=== PATIENT | male | born 1955 | race Caucasian/White ===

== ENCOUNTER 2017-05-09 12:46 | Emergency (ER) | payer OTHER, SELFPAY ==
[2017-05-09 12:52] VITALS: BP 165/91; PULSE 57; RESP 18; TEMP 36.5; O2SAT 98; BMI 34.2
--- NOTE | 2017-05-09 13:00 | HMH.EDGENADL ---
ED Disposition Clinical Impression: Ureteral calculus Disposition: Home, Self-Care Condition on Discharge: Good Instructions: DI for Kidney Stones Additional Instructions: Follow-up at the [facility] urology clinic. Call today or tomorrow to make appointment to be seen within 1 week. Additional instructions for KIDNEY STONE (URETERAL CALCULUS): See your physician as soon as possible for further evaluation. Drink plenty of fluids. Strain your urine and save any stones you catch. Return immediately if you develop a fever or have uncontrollable vomiting or uncontrollable pain. What is known about DIET and KIDNEY STONES: Most kidney stones contain calcium oxalate. The logical assumption would be that you should avoid calcium and oxalate in your diet. Contrary to what you would think, this is not necessarily the case. What is actually recommended for kidney stone prevention is a diet that contains MODERATELY HIGH AMOUNTS OF CALCIUM and is LOW IN SODIUM with PLENTY OF FLUIDS. Avoiding oxalate containing foods is recommended by some experts, but is controversial. Following the DASH (Dietary Approaches to Stop Hypertention) has been shown to significantly reduce the incidence of kidney stones. The DASH diet encourages you to reduce the sodium in your diet and eat a variety of foods rich in nutrients that help lower blood pressure, such as potassium, calcium and magnesium. Recommendations: Fluids: It is widely agreed upon that you need to drink plenty of fluids. A minimum would be 8-10 glasses (8 oz each) of fluid per day. Some experts recommend as much as 14-15 glasses a day. Sodium: The way to lower calcium in your urine is to lower your sodium intake. Try not to get more than 1500 mg a day. Calcium: Dietary calcium prevents absorption of oxalate. Make sure you get about 1000 to 1200 mg a day. You can get enough calcium from dairy products without taking supplements. Do not overdo it. Calcium should be ingested with meals, not in between meals. You need to get your calcium at mealtime to decrease the absorption of oxalate from other foods. Oxalate: Although some experts recommend avoiding oxalate in your diet, there have been no studies that prove this works. Eating more calcium will reduce oxalate absorption, and is probably all that is needed to reduce oxalate in your urine. Oxalate containing foods are generally good for you in all other respects - leafy greens, nuts, etc... So avoiding them unnecessarily might not be the best thing for your health. If you want to do something to avoid oxalate, avoid spinach and rhubarb - those are extremely high in oxalate (or at least eat a high calcium meal with these). ALSO: If you retrieve your stone by straining your urine, take it to your physician for stone analysis, which can help tailor your dietary recommendations. For further reading, check out the [facility] web page about the kidney stone diet: [email or web address] Additional instructions for CONTROLLED SUBSTANCES: You have been prescribed a medication that is a controlled substance. Controlled substances include pain medications known as opiates and sedative nerve medications known as benzodiazepines. Some common opiates include: Codeine (such as Tylenol #3) Hydrocodone (Vicodin, Lortab, Lorcet, Munson) Oxycodone (Percocet, Percodan, Oxycodone, Oxy IR) Some common benzodiazepines include: Diazepam (Valium) Lorazepam (Ativan) Alprazolam (Xanax) Clonazepam (Klonopin) Oxazepam (Serax) All of these controlled substances are highly addictive and frequently abused. Misuse can and frequently does lead to addiction as well as overdose and . Medication should be stored in a locked cabinet or other secure storage unit. Do not store the medication in a motor vehicle. Short term supplies, 3 days or less, are prescribed because of the highly a
--- NOTE | 2017-05-09 13:13 | CT_ITS ---
CT lumbar spine wo con INDICATION: Right flank pain, right-sided back pain ITS.REASON: flank pain ORDERING PHYSICIAN: Quinten Lei MD PATIENT AGE: 61 years COMPARISON: None TECHNIQUE: Axial images are obtained without contrast. Sagittal and coronal reformatted images are reviewed as well. FINDINGS: There is normal alignment. Hypoplastic ribs are present at T12. There are 4 regular lumbar vertebra. Degenerative disc disease T11-T12 and T10-T11. Schmorl's node is present along the superior endplate of T12 on the right. T12-L1 is unremarkable. L1-L2: Minimal bulging disc L2-L3: Degenerative disc disease. A limbus vertebra involves the anterior superior endplate of L3. L3-L4: Degenerative disc disease with mild concentric bulging disc and mild bilateral foraminal narrowing. L4 S1: 3 mm anterolisthesis of L4 with concentric bulging disc. There is moderate facet arthritic/hypertrophic change with mild bilateral foraminal narrowing. There is fusion of the superior aspect of the SI joint. Incidental note is made of a 6 mm stone in the mid aspect of the right ureter at the L4 level. IMPRESSION: 1. Lumbar spondylosis with multilevel degenerative disc disease, bulging disc, and facet hypertrophic change. Please see above for detailed description at each level. 2. 6 mm right mid ureteral stone
--- NOTE | 2017-05-09 13:13 | XR_ITS ---
XR chest 2V HISTORY: Shortness of air ITS.REASON: soa ORDERING PHYSICIAN: Quinten Lei MD PATIENT AGE: 61 years COMPARISON: None available FINDINGS: The cardiomediastinal silhouette and pulmonary vascularity are within normal limits. The lungs are clear without infiltrates, suspicious nodules, or pleural effusions. No acute bony abnormalities. IMPRESSION: Negative chest, no acute finding
--- NOTE | 2017-05-09 13:13 | CT_ITS ---
CT abdomen pelvis wo con CLINICAL INDICATION: Right-sided flank pain, right groin pain ITS.REASON: flank pain ORDERING PHYSICIAN: Quinten Lei MD PATIENT AGE: 61 years COMPARISON: None TECHNIQUE: Axial images obtained with sagittal and coronal reformats. PROCEDURE: Oral Contrast: None IV Contrast: None . FINDINGS: Lung bases are clear. Liver, gallbladder, adrenal glands, and pancreas are unremarkable. There is mild splenomegaly at 15 cm. There is a 6 mm right mid ureteral stone causing mild right-sided hydronephrosis and proximal hydroureter. The stone is at the L5 level. The left renal collecting system has an unremarkable appearance. No urinary bladder calculi. No intestinal obstruction or free air. The appendix has an unremarkable appearance. No evidence of diverticulitis. No pelvic mass or abnormal fluid collection. The prostate is slightly prominent at 5.3 cm. There is a small umbilical hernia which contains fat. There is also a small supraumbilical hernia containing fat with very slight increased density of the fat within the supraumbilical hernia. There is a limbus vertebra at L4 degenerative disc disease at T12-L1 and L3-L4 and L4-L5. IMPRESSION: 1. 6 mm right mid ureteral stone with mild right hydroureteronephrosis. 2. Small umbilical and supraumbilical hernias containing fat. 3. Mild splenomegaly
--- NOTE | 2017-05-09 13:34 | PC.NURSE ---
pt to CT
[2017-05-09 13:52] LABS: Basophils % 0.1 % (0.1-2.0); Eosinophils % 0.4 % (0.1-12.0); Hematocrit 39.8 % (42.0-52.0); Hemoglobin 13.3 g/dL (14.1-18.0); Lymphocytes # 0.6 K/mm3 (0.7-4.5); Lymphocytes % 10.3 K/mm3 (10-50); Mean Corpuscular HGB Conc 33.4 g/dL (31.8-35.4); Mean Corpuscular Hemoglobin 29.7 pg (27.0-31.2); Mean Corpuscular Volume 88.8 fl (80-94); Monocytes # 0.2 K/mm3 (0.1-1.0); Monocytes % 3.5 % (1.7-9.3); Neutrophils # 5.4 K/mm3 (1.8-7.8); Neutrophils % 85.8 % (37.0-80.0); Platelet Count 149 K/mm3 (142-424); Red Blood Count 4.48 M/mm3 (4.60-6.20); Red Cell Distribution Width 13.3 % (11.5-17.5); White Blood Count 6.3 K/mm3 (4.8-10.8)
[2017-05-09 13:53] LABS: MANUAL DIFFERENTIAL MANUAL DIFFERENTIAL (MANUAL DIFF)
[2017-05-09 14:03] LABS: Alanine Aminotransferase 33 U/L (12-78); Albumin/Globulin Ratio 1.1 (1.1-1.8); Alkaline Phosphatase 95 U/L (46-116); Anion Gap 14.2 mEq/L (5-15); Aspartate Amino Transferase 18 U/L (15-37); Bilirubin,Total 0.5 mg/dL (0.2-1.0); Blood Urea Nitrogen 18 mg/dL (7-18); CKMB Relative Index 1.3 U/L (0-4.0); Calcium 8.6 mg/dL (8.5-10.1); Carbon Dioxide 27 mmol/L (21.0-32.0); Chloride 103 mmol/L (98-107); Creatine Kinase 80 U/L (39-308); Creatinine Clearance Estimated 108 mL/min (0-300); Creatinine,Serum 1.05 mg/dL (0.70-1.30); Estimated Glomerular Filt Rate 72 ml/min (>60); GFR (African American) 87 ML/MIN (>60); Globulin 3.7 gm/dl (1.3-3.2); Glucose 114 mg/dL (74-106); Lipase 122 u/L (73-393); Potassium 4.2 mmoL/L (3.5-5.1); Sodium 140 mmol/L (136-145); Total Protein,Serum 7.7 gm/dL (6.4-8.2); Troponin I < 0.02 ng/ml (0.00-0.06)
[2017-05-09 14:22] LABS: Lymphocytes % 16 % (10-50); Monocytes % 7 % (2-9); Neutrophils % 77 % (42-76); Platelet Estimate Normal; RBC Morphology Normal; Total Cells Counted 100
[2017-05-09 14:44] LABS: Microscopic, Urine URINE MICROSCOPIC (MICROSCOPIC)
[2017-05-09 14:47] VITALS: BP 162/92; PULSE 64; RESP 18; O2SAT 98
[2017-05-09 14:49] LABS: Appearance,Urine CLEAR (Clear); Bilirubin,Urine Negative (Negative); Blood, Urine 3+ (Negative); Color,Urine YELLOW (Yellow); Glucose,Urine (UA) Negative (Negative); Ketones,Urine Negative (Negative); Leukocyte Esterase,Urine Negative (Negative); Nitrate,Urine Negative (Negative); PH,Urine 6.5 (5.0-8.5); Protein,Urine TRACE (Negative)
[2017-05-09 15:16] LABS: Bacteria,Urine Trace /lpf; Mucus,Urine 3+ /lpf; RBC,Urine 20-50 #/hpf (0-3); WBC,Urine Occasional #/hpf (0-3)
[2017-05-09 15:17] VITALS: BP 154/92; PULSE 66; RESP 20; TEMP 36.7; O2SAT 97
== END 2017-05-09 15:17 | disposition home or self-care (01) ==
PROVIDERS: Emergency Provider Emergency Medicine
DX: N13.2 Hydronephrosis with renal and ureteral calculous obstruction (principal); M54.9 Dorsalgia, unspecified; R06.02 Shortness of breath
CPT/HCPCS: 71046; 72131; 74176; 80053; 81001; 82550; 82553; 83690; 84484; 85007; 85025; 93005; 96374; 96375; 99283; J2405

== ENCOUNTER 2020-09-28 10:09 | Emergency (ER) | payer SELFPAY ==
[2020-09-28 10:10] VITALS: BP 155/79; PULSE 81; RESP 16; TEMP 36.7; O2SAT 96; BMI 36.3; BMI 36.5
--- NOTE | 2020-09-28 11:04 | HMH.EDUTC ---
[facility] [place] Disposition Clinical Impression: Contusion of face Qualifiers: Encounter type: initial encounter Qualified Code(s): S00.83XA - Contusion of other part of head, initial encounter Disposition: Home, Self-Care Condition on Discharge: Good Instructions: Contusion, DI for Contusion, DI for Abrasion Additional Instructions: Keep abrasions on face clean and dry Ice to area under right eye may help with pain and swelling Over the counter Motrin and/or Tylenol may help with pain Return if needed Follow up with Family Doctor if no improvement or any worsening of symptoms Straight to ER if any life threatening symptoms Watch wounds for signs of infection such as redness, drainage and warmth if seen follow up with PCp Referrals: Provider,Referral, MD [Primary Care Provider] - As needed Forms: Work/School Release Time of Disposition: 11:49 Medical Decision Making - Sage Inquiry Pt receiving controlled substance: No Sage was queried for this patient: No Vital Signs: 09/28/20 10:10 09/28/20 11:48 Temperature 98.1 F 98.1 F Temperature Source Oral Pulse Rate 81 Pulse Rate [Left Radial] 81 Respiratory Rate 16 16 Blood Pressure 155/79 H Blood Pressure [Left Arm] 155/79 H Blood Pressure Mean [Left Arm] 104 Blood Pressure Source [Left Arm] Automatic Cuff Blood Pressure Position [Left Arm] Sitting 02 Sat by Pulse Oximetry 96 Oxygen Delivery Method Room Air Orders (Tests/Meds): ED MEDICATIONS Discontinued Medications Generic Name Dose Route Start Last Admin Trade Name Freq PRN Reason Stop Dose Admin Tetanus/Reduced Diphtheria/Acell Pertussis 0.5 ml 09/28/20 10:39 09/28/20 10:50 Tet/Diphth/Pert-Adult 0.5ml Syringe IM 09/28/20 10:40 0.5 ml .ONCE ONE Administration - Radiology Data #1 Image(s): Nasal Bones Image Reviewed: Yes I have reviewed radiologist's interpretation No evidence of displaced fractures. No air-fluid levels in the sinuses. #2 Image(s): Other (orbit bilateral) Image Reviewed: Yes I have reviewed radiologist's interpretation No acute findings [facility] [place] HPI - General Stated complaint: wc @ 0830 lac to nose Time Seen by Provider: 09/28/20 11:04 Mode of Arrival: Ambulatory Source of Information: Patient Limitations: No Limitations Description of Symptoms (Recalled from Triage Doc. by RN): Pt presents with abrasion to bridge of nose and under rt eye. Pt states that a cow kicked a trailer gate into him and caused his glasses to cut his face. Pt has bruising with minor swelling under rt HEENT Symptoms (Recalled from RN notes): Yes Resp Symptoms (Recalled from RN notes): No Skin Symptoms (Recalled from RN notes): Yes MS Symptoms (Recalled from RN notes): No Functional Status (Recalled from RN notes): WNL - History of Present Illness Provider Complaint: Patient states that he was getting a cow out of the gate when the cow kicked the gate and he had glasses on and the gate hit him in the face and broke his glasses and caused abrasion to his face on his nose and around his right eye States that his job wanted him to get checked Denies LOC Denies vision changes or nose bleeds - Related Data Home Medications Medication Instructions Recorded Confirmed Atorvastatin Calcium [Atorvastatin 10 mg PO DAILY 05/09/17 05/09/17 20mg Tab] Previous Rx's Medication Instructions Recorded Ibuprofen [Ibuprofen 800mg Tab] 800 mg PO Q8HP PRN #15 tab 05/09/17 Ondansetron [Zofran 4mg ODT] 4 mg PO TIDP PRN #10 tab.rapdis 05/09/17 Oxycodone HCl/Acetaminophen 1 tab PO Q6HP PRN #10 tab 05/09/17 [Percocet 5/325mg tablet] Tamsulosin HCl [Flomax 0.4mg 0.4 mg PO HS #10 cap.er.24h 05/09/17 capsule] Allergies Allergy/AdvReac Type Severity Reaction Status Date / Time Penicillins Allergy Verified 05/09/17 12:57 - Worker's Comp Is this a Worker's Comp case?: No H History - Hepatitis A Screen Drug use history?: No High risk sexual behavi
--- NOTE | 2020-09-28 11:14 | XR_ITS ---
PROCEDURE: XR ORBIT BILATERAL MIN 4V CLINICAL INDICATION: hit in face with gate COMPARISON: No exams were available for comparison FINDINGS: The orbital margins are intact. The visualized paranasal sinuses and mastoid air cells are clear. The visualized mandible is within normal limits without evidence of acute fractures. IMPRESSION: No acute findings. Dictated by: Heather Rodriguez 09/28/2020 11:40 Heather Rodriguez in OV 09/28/2020 11:40
--- NOTE | 2020-09-28 11:14 | XR_ITS ---
PROCEDURE: XR NASAL BONES MIN 3V CLINICAL INDICATION: hit in face with gate COMPARISON: No exams were available for comparison FINDINGS: No evidence of displaced fractures are noted. The orbital floor is intact. The rest of the orbital margins, visualized zygomatic arches and mandible are within normal limits. Minor degenerative changes of the visualized cervical spine is noted. The orbital margins, visualized frontal and maxillary sinuses are within normal limits. The frontal IMPRESSION: No evidence of displaced fractures. No air-fluid levels in the sinuses. Dictated by: Heather Rodriguez 09/28/2020 11:38 Heather Rodriguez in OV 09/28/2020 11:38
[2020-09-28 11:48] VITALS: BP 155/79; PULSE 81; RESP 16; TEMP 36.7; O2SAT 96
== END 2020-09-28 11:50 | disposition home or self-care (01) ==
LOC: ER 10:28 → UTC 10:28
PROVIDERS: Emergency Provider Nurse Practitioner
DX: S00.83XA Contusion of other part of head, initial encounter (principal); W22.8XXA Striking against or struck by other objects, initial encounter; Y92.69 Other specified industrial and construction area as the place of occurrence of the external cause; Y99.0 Civilian activity done for income or pay; Z23 Encounter for immunization
CPT/HCPCS: 70160; 70200; 90471; 90715; 99202; G0463

== ENCOUNTER → 2021-03-11 12:48 | Outpatient (CLI) | payer OTHER, SELFPAY | PROVIDERS: Visit Provider Nurse Practitioner Family | DX: Z20.822 Contact with and (suspected) exposure to COVID-19 (principal) | CPT/HCPCS: C9803; U0003; U0005 ==

== ENCOUNTER 2021-06-04 22:30 | Emergency (ER) | payer OTHER, SELFPAY ==
[2021-06-04 22:31] VITALS: BP 154/73; PULSE 90; RESP 16; TEMP 36.6; O2SAT 97; BMI 38.0
--- NOTE | 2021-06-04 22:52 | XR_ITS ---
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 Views: 3 or more views. COMPARISON: No relevant prior studies available. FINDINGS: Bones/joints: There is a nondisplaced fracture involving the 2nd distal phalanx. Subtle intra-articular extension into the distal interphalangeal joint. Soft tissues: Normal. IMPRESSION: There is a nondisplaced fracture involving the 2nd distal phalanx.
[2021-06-04 23:02] VITALS: BP 146/83; PULSE 76; PULSE 84; O2SAT 94; O2SAT 95
--- NOTE | 2021-06-04 23:19 | PC.NURSE ---
ER at bedside
[2021-06-04 23:30] VITALS: BP 152/85; PULSE 81; PULSE 84; O2SAT 91; O2SAT 95
--- NOTE | 2021-06-04 23:55 | HMH.EDWNDL ---
ED Disposition Clinical Impression: Finger fracture, right Qualifiers: Encounter type: initial encounter Finger: index finger Fracture type: closed Phalanx: distal Fracture alignment: nondisplaced Qualified Code(s): S62.660A - Nondisplaced fracture of distal phalanx of right index finger, initial encounter for closed fracture Finger laceration Qualifiers: Encounter type: initial encounter Finger: index finger Damage to nail status: with damage Foreign body presence: without foreign body Laterality: right Qualified Code(s): S61.310A - Laceration without foreign body of right index finger with damage to nail, initial encounter Subungual hematoma of finger Qualifiers: Encounter type: initial encounter Qualified Code(s): S60.10XA - Contusion of unspecified finger with damage to nail, initial encounter Disposition: Home, Self-Care Condition on Discharge: Good Instructions: DI for Laceration Repair Additional Instructions: keep clean and dry and see ortho for follow up Prescriptions: cephALEXin [cephALEXin 500mg capsule*] 500 mg PO TID #30 cap Transmission Status: Pending to [id number] Referrals: Provider,Referral, [Primary Care Provider] - - Critical Care Critical Care Time: No Attestation: On 06/04/21, the high probability of a clinically significant, sudden or life threatening deterioration of the following system(s) required my full and direct attention, intervention and personal management. The time I documented below is in addition to time spent performing reported procedures but includes the following listed in this critical care notation. Medical Decision Making - Medical Records Medical records reviewed: Yes: I reviewed the patient's medical records. - Sage Inquiry Pt receiving controlled substance: No Vital Signs: 06/04/21 22:31 06/04/21 23:02 06/04/21 23:30 Temperature 97.8 F Temperature Source Oral Pulse Rate 76 84 Pulse Rate [Left Radial] 90 Respiratory Rate 16 Blood Pressure 146/83 H 152/85 H Blood Pressure [Right Arm] 154/73 H Blood Pressure Mean 104 104 Blood Pressure Mean [Right Arm] 100 Blood Pressure Source [Right Arm] Automatic Cuff Blood Pressure Position [Right Arm] Sitting 02 Sat by Pulse Oximetry 97 94 L 91 L Oxygen Delivery Method Room Air Room Air Room Air - Lab Data Lab results reviewed: Yes: I reviewed the patient's lab results. Orders (Tests/Meds): ED MEDICATIONS Discontinued Medications Generic Name Dose Route Start Last Admin Trade Name Patsy PRN Reason Stop Dose Admin Acetaminophen 650 mg 06/04/21 22:52 06/04/21 22:59 Acetaminophen 325mg Tab PO 06/04/21 22:53 650 mg ONCE ONE Administration Cephalexin HCl 500 mg 06/05/21 00:19 Cephalexin 500mg Capsule PO 06/05/21 00:20 ONCE ONE Ibuprofen 600 mg 06/04/21 22:52 06/04/21 22:59 Ibuprofen 600 Mg Tablet PO 06/04/21 22:53 600 mg ONCE ONE Administration - Radiology Data #1 Image(s): Hand Image Reviewed: Yes I have reviewed radiologist's interpretation Preliminary Findings: Abnormal (fx noted ) Medical Decision Narrative: has nail injury with hematoma and lac with fx and after repair will refer to ortho - workman comp form completed Wound/Laceration HPI - General Chief Complaint: Wound/Laceration Stated Complaint: WC 06/04@1000 lac to r Index finger Time Seen by Provider: 06/04/21 23:00 Mode of Arrival: Ambulatory Source of Information: Patient, Spouse, Medical Record Limitations: No Limitations Description of Symptoms (Recalled from ER Triage Doc. 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 He went home and his was concerned that there was still bleeding from wound. Pt has lac to said finger. - History of Present Illness HPI narrative: workmans comp case- index finger smashed with lac and injury at work between saravia - Onset (ago): hour(s) Extremity Location: Right: hand Place: wor
--- NOTE | 2021-06-05 00:36 | PC.NURSE ---
Updated pt that we were waiting on scan results. No complaints at this time.
[2021-06-05 01:12] VITALS: BP 146/88; PULSE 64; RESP 16; TEMP 36.9; O2SAT 97
== END 2021-06-05 01:30 | disposition home or self-care (01) ==
PROVIDERS: Emergency Provider Emergency Medicine
DX: S62.660A Nondisplaced fracture of distal phalanx of right index finger, initial encounter for closed fracture (principal); S61.310A Laceration without foreign body of right index finger with damage to nail, initial encounter; W23.1XXA Caught, crushed, jammed, or pinched between stationary objects, initial encounter; Y92.79 Other farm location as the place of occurrence of the external cause; Y99.0 Civilian activity done for income or pay
CPT/HCPCS: 12001; 11740; 73130; 99283

== ENCOUNTER → 2021-07-15 08:04 | Outpatient (CLI) | payer OTHER, SELFPAY ==
--- NOTE | 2021-07-15 08:12 | XR_ITS ---
FINAL REPORT CLINICAL HISTORY: finger fx COMPARISON: June 04, 2021 FINDINGS: 3 views of the right hand were obtained. Again seen is a longitudinal fracture spanning the length of the 2nd distal phalanx. The fracture line extends into the DIP joint. This is mildly displaced. There is [id number] narrowing of the DIP and PIP joints. There is degenerative cyst formation in the distal 1st, 2nd, and 3rd metacarpals. There is mild soft tissue swelling over the dorsum of the hand. IMPRESSION: Redemonstration of 2nd distal phalanx fracture. Reviewed, Interpreted and Dictated by Silas Greenfield MD Transcribed by Lorenzo Knowles Authenticated by Silas Greenfield MD on 07/15/2021 09:18:05 AM [facility]
== END ==
PROVIDERS: Visit Provider Orthopaedic Surgery
DX: S62.660D Nondisplaced fracture of distal phalanx of right index finger, subsequent encounter for fracture with routine healing (principal)
CPT/HCPCS: 73130

== ENCOUNTER → 2021-09-02 08:32 | Outpatient (CLI) | payer OTHER, SELFPAY ==
--- NOTE | 2021-09-02 08:36 | XR_ITS ---
FINAL REPORT CLINICAL HISTORY: hand injury 2nd digit COMPARISON: July 15, 2021 FINDINGS: RIGHT HAND Three views were obtained. Again noted is a fracture of the 2nd distal phalanx. The bony alignment is stable. There is partial bony fusion proximally. The visualized joint spaces are normally aligned. The soft tissues are unremarkable. IMPRESSION: Fracture of the 2nd distal phalanx with partial bony fusion. Reviewed, Interpreted and Dictated by Petar Gentile III, MD Transcribed by Amanda Dunaway Authenticated and . [facility]
== END ==
PROVIDERS: Visit Provider Orthopaedic Surgery
DX: S62.660D Nondisplaced fracture of distal phalanx of right index finger, subsequent encounter for fracture with routine healing (principal)
CPT/HCPCS: 73130

== ENCOUNTER → 2021-11-18 08:15 | Outpatient (CLI) | payer OTHER, SELFPAY ==
--- NOTE | 2021-11-18 08:22 | XR_ITS ---
FINAL REPORT CLINICAL HISTORY: right index finger fracture f/u COMPARISON: 09/02/2021 FINDINGS: RIGHT HAND Three views demonstrate a fracture of the 2nd distal phalanx with interval partial bony fusion. Mild degenerative changes are noted. No other fracture is identified. The visualized joint spaces are normally aligned. The soft tissues are unremarkable. IMPRESSION: Interval healing of fracture of the 2nd distal phalanx. Reviewed, Interpreted and Dictated by Petar Gentile III, MD Transcribed by Heydi Fuentes Authenticated and [facility]
== END ==
PROVIDERS: Visit Provider Orthopaedic Surgery
DX: S62.660A Nondisplaced fracture of distal phalanx of right index finger, initial encounter for closed fracture (principal)
CPT/HCPCS: 73130

== ENCOUNTER 2023-09-16 17:29 | Observation (INO) | payer MEDICARE, SELFPAY ==
[2023-09-16] VITALS (19 sets, daily range): BP systolic 94–160; BP diastolic 41–94; PULSE 75–125; RESP 16–22; TEMP 36.8–39.2; O2SAT 92–98; BMI 37.5; BMI 41.1; BMI 39.8
--- NOTE | 2023-09-16 17:39 | XR_ITS ---
PROCEDURE INFORMATION: Exam: XR Chest Exam date and time: 09/16/2023 5:39 PM Age: 68 years old Clinical indication: Pain; Chest pressure; Additional info: Cp TECHNIQUE: Imaging protocol: Radiologic exam of the chest. Views: 1 view. COMPARISON: CR CXR2V XR chest 2V 05/09/2017 1:53 PM FINDINGS: Lungs: No consolidation or lung nodules. Pleural spaces: No pleural effusion. No pneumothorax. Heart/Mediastinum: No abnormalities. No cardiomegaly. No pulmonary vascular congestion. Bones/joints: No fractures or bone lesions. IMPRESSION: No acute findings in the chest. No interval change.
--- NOTE | 2023-09-16 17:42 | HMH.EDCP ---
Discharge Plan Disposition Patient Disposition: Admitted Chief Complaint: Shortness of Breath/Dyspnea Prescriptions Prescriptions: No Action No Known Home Medications Referrals Follow up/Referrals: Provider,Referral, [Primary Care Provider] - See instructions Clinical Impressions Clinical Impression: ST elevation (STEMI) myocardial infarction, Fever Discharge ED Provider: Saravanan Cade General Chief Complaint: Shortness of Breath/Dyspnea Stated Complaint: SOA Time Seen by Provider: 09/16/23 17:39 History of Present Illness HPI narrative: Patient is a 68-year-old male with no chronic comorbidities who presents emergency department for evaluation of chest pain. Patient has had slight cough, generally feeling unwell with similar symptoms of family members at home since . He has had chest pressure that is gotten progressively worse over the last few hours causing her to present here for continued evaluation. No abdominal pain. There is associated nonbloody diarrhea. No other acute complaints at this time. Related Data Home Medications Medication Instructions Recorded Confirmed No Known Home Medications 07/15/21 11/18/21 Allergies Allergy/AdvReac Type Severity Reaction Status Date / Time Penicillins Allergy Verified 11/18/21 09:05 [facility] Disclaimer: The information contained in this section may have been updated after the patient was seen, as this information can be updated by other users. Social History Smoking Status: Never smoker alcohol intake: never current occupational status: other Travel in the last 8 weeks: None ROS Obtained: Yes Systems reviewed as appropriate & no additional complaints except as documented Physical Exam General General appearance: alert and in no apparent distress Head Head exam: atraumatic and normocephalic Eye Eye exam: Present PERRL ENT ENT exam: Present mucous membranes moist Neck Neck exam: Present normal inspection Chest Chest inspection: Present normal inspection and symmetric chest wall rise Respiratory Respiratory exam: Present normal lung sounds bilaterally; Absent respiratory distress Cardiovascular Cardiovascular exam: Present normal rhythm and tachycardia Abdominal Exam Abdominal exam: Present soft; Absent tenderness Extremities Exam Extremities exam: Present normal inspection Neurological Exam Neurological exam: Present alert Psychiatric Psychiatric exam: Present normal affect Skin Skin exam: Present warm and dry HEART Score HEART Score HEART Score assessment performed?: Yes History (anamnesis): Highly suspicious ECG: Significant ST-deviation Age: >65 years Risk factors: No known risk factors Troponin: </= normal limit HEART Score: 6 Critical Care Critical Care Time Critical Care Time: Yes Attestation: On 09/16/23, the high probability of a clinically significant, sudden or life threatening deterioration of the following system(s) required my full and direct attention, intervention and personal management. The time I documented below is in addition to time spent performing reported procedures but includes the following listed in this critical care notation. Total Time Total Critical Care Time: 45 Medical Decision Making Sage Inquiry Pt receiving controlled substance: No Vital Signs Vital Signs: 09/16/23 17:37 09/16/23 17:41 09/16/23 18:14 Temperature 102.5 F H Temperature Source Oral Pulse Rate 121 H 114 H Pulse Rate [Right Radial] 125 H Respiratory Rate 22 Blood Pressure 160/78 H 111/64 Blood Pressure [Right Arm] 157/94 H Blood Pressure Mean [Right Arm] 115 Blood Pressure Source [Right Arm] Automatic Cuff Blood Pressure Position [Right Arm] Sitting 02 Sat by Pulse Oximetry 96 94 L 97 Oxygen Delivery Method Room Air Room Air Room Air 09/16/23 18:33 Temperature 102.3 F H Temperature Source Pulse Rate 93 H Pulse Rate [Right Radial] Respiratory Rate Blood Pressure Blood Pressure [Right Arm] Blood Pressure Mean [Right Arm] Blood Pressure Source [Right Arm] Blood Pressure Position [Right Arm] 02 Sat by Pulse Oximetry 98 Oxygen Delivery Method Lab Data Labs: Lab Results 09/16/23 17:46: WBC 4.8, RBC 4.00 L, Hgb 13.2 L, Hct 36.2 L, MCV 90.5, MCH 32.9 H, MCHC 36.4 H, RDW 14.7, Plt Count 104 L, MPV 8.2, Neut % (Auto) 89.7 H, Lymph % (Auto) 5.5 L, [place] % (Auto) 4.1, Eos % (Auto) 0.4, Baso % (Auto) 0.4, Neut # (Auto) 4.3, Lymph # (Auto) 0.3 L, [place] # (Auto) 0.2, Eos # (Auto) 0.0, Baso # (Auto) 0.0, PT 13.7 H, INR 1.25 H, Sodium 133 L, Potassium 4.5, Chloride 102, Carbon Dioxide 20 L, Anion Gap 15.5 H, BUN 26 H, Creatinine 1.60 H, Estimated Creat Clear 69, Estimated GFR 43 L, Est GFR ( Amer) 52 L, Glucose 149 H, Calcium 8.7, Total Bilirubin 3.0 H, AST 74 H, ALT 49, Alkaline Phosphatase 91, Troponin I < 0.01, Total Protein 8.2, Albumin 4.4, Globulin 3.8 H, Albumin/Globulin Ratio 1.2, Triglycerides 146, Cholesterol 190, LDL Cholesterol Direct 105.64, VLDL Cholesterol 29, HDL Cholesterol 35 L, Cholesterol/HDL Ratio 5.4 H, SARS-CoV-2 (PCR) Not detected, Influenza A Untype (PCR) Not detected, Influenza Type B (PCR) Not detected 09/16/23 17:46 09/16/23 17:46 Response Orders (Tests/Meds): ED MEDICATIONS Generic Name Dose Route Start Last Admin Trade Name Freq PRN Reason Stop Dose Admin Sodium Chloride 1,000 mls @ 25 mls/hr 09/16/23 17:45 Sod Chlor 0.9% 1000ml Bag IV 10/16/23 17:44 .Q25H HEIDI Lactated Ringer's 1,000 mls @ 999 mls/hr 09/16/23 18:16 09/16/23 18:41 Lactated Ringer's 1000 Ml Bag IV 09/16/23 19:16 999 mls/hr .Q1H1M ONE Administration Miscellaneous 1 each 09/16/23 19:00 Heparin Drip Consult NOTAPPLIC 10/16/23 18:59 CONSULT PHARMACY HEIDI Nitroglycerin 0.4 mg 09/16/23 17:39 09/16/23 17:57 Nitroglycerin 0.4mg Sl Tablet SL 09/16/23 19:39 0.4 mg Q5MINP PRN Administration Chest Pain Sodium Chloride 10 ml 09/16/23 17:39 Sodium Chloride 0.9% 10ml Flush Syringe IV 10/16/23 17:38 NEEDED PRN Maintain IV Site Discontinued Medications Generic Name Dose Route Start Last Admin Trade Name Freq PRN Reason Stop Dose Admin Acetaminophen 1,000 mg 09/16/23 17:45 09/16/23 17:58 Acetaminophen 500mg Tab PO 09/16/23 17:46 1,000 mg ONCE ONE Administration Aspirin 324 mg 09/16/23 17:45 09/16/23 18:00 Aspirin 81mg Chewable Tablet PO 09/16/23 17:46 324 mg ONCE ONE Administration Iopamidol 100 ml 09/16/23 18:25 09/16/23 18:26 Iopamidol-370 (76%);100ml Bottle IV 09/16/23 18:26 100 ml ONCE ONE Administration Metoprolol Tartrate 10 mg 09/16/23 17:52 09/16/23 18:09 Metoprolol Tartrate 5mg/5ml Vial IV 09/16/23 17:53 10 mg ONCE ONE Administration Miscellaneous 1 each 09/16/23 17:45 09/16/23 17:59 Heparin Drip Consult NOTAPPLIC 09/17/23 05:40 Not Given CONSULT [facility] Morphine Sulfate 2 mg 09/16/23 17:39 Morphine 2mg/Ml Syringe IV 09/16/23 19:39 Q5MINP PRN Severe Pain (7-10) Morphine Sulfate 4 mg 09/16/23 18:03 09/16/23 18:06 Morphine 4mg/Ml Syringe IV 09/16/23 18:04 4 mg ONCE ONE Administration Prasugrel 60 mg 09/16/23 17:40 09/16/23 17:59 Prasugrel 10mg Tab PO 09/16/23 17:41 Not Given ONCE ONE Sodium Chloride 10 ml 09/16/23 18:25 09/16/23 18:26 Sodium Chloride 0.9% 10ml Syr (Rad Only) IV 09/16/23 18:26 10 ml ONCE ONE Administration Sodium Chloride 50 ml 09/16/23 18:25 09/16/23 18:26 0.9 % Sodium Chloride 50 Ml Vial IV 09/16/23 18:26 50 ml ONCE ONE Administration ORDERS Category Date Time Status CT angio chest - dissection Stat Cat Scan 09/16/23 17:52 Taken Consult to Cardiology [CONS] Stat Cons 09/16/23 17:39 Active XR chest portable Stat Exams 09/16/23 17:39 Completed Complete Blood Count Auto Diff Stat Lab 09/16/23 17:46 Results Comprehensive Metabolic Panel Stat Lab 09/16/23 17:46 Completed Lipid Panel Stat Lab 09/16/23 17:46 Completed PTT Heparin (inpatient only) Stat Lab 09/16/23 18:48 Ordered Prothrombin Time INR Stat Lab 09/16/23 17:46 Completed Rapid PCR Covid and Flu A/B Stat Lab 09/16/23 17:46 Completed Troponin I Q3H Lab 09/16/23 20:45 Ordered Troponin I Q3H Lab 09/16/23 23:45 Ordered Troponin I Stat Lab 09/16/23 17:39 Completed ECG Data Tracing #1: ECG Narrative: Independently interpreted by me rate is 125, rhythm is regular, ST elevation in lead V2, ST depression in the inferior lateral leads. STEMI in the anterior leads versus Brugada. QTc 376 Tracing #2: ECG Narrative: Independently interpreted by me rate is 93, rhythm is regular, ST elevation in the anterior leads consistent with myocardial infarction with reciprocal changes. MDM Narrative Medical Decision Narrative: In summary patient is 68-year-old male past medical history described above presents emergency department for evaluation of chest pressure and pain. Patient is hemodynamically stable and tachycardic upon arrival, febrile temperature greater than 102. EKG has anterior STEMI with reciprocal lateral and inferior ST depression versus Brugada. The case was discussed with Dr. Pitts, patient is febrile and tachycardic which may be revealing his Brugada. He recommends chest x-ray, IV metoprolol, and initial workup prior to deciding whether or not to go to the [facility], I think that this is reasonable has not could be Brugada versus ACS. Differential also includes pulmonary embolism, aortic dissection, myocarditis, among others. Workup be conducted with hematologic labs, emergent CTA chest. Initial interventions include morphine, aspirin, nitroglycerin. Initial workup reviewed by me, hematologic labs have TATYANA which will be repleted with 1 L crystalloid, initial troponin undetectably low, COVID-negative. Repeat EKG is concerning for dynamic changes with evolving STEMI. Although CTA was conducted formal read is pending. The case was again discussed with Dr. Pitts who agrees we should proceed to [facility] at this time. Sepsis bolus fluids will be deferred given patient appears euvolemic. Patient will be given heparin bolus and Effient and will proceed to [facility]. CTA read pending at time of admission.
--- NOTE | 2023-09-16 17:46 | PC.NURSE ---
Paging again at this time
--- NOTE | 2023-09-16 17:52 | CT_ITS ---
PROCEDURE INFORMATION: Exam: CTA Chest With Contrast Exam date and time: 09/16/2023 6:24 PM Age: 68 years old Clinical indication: Pain; Shortness of breath; Chest pressure; Additional info: Pop, taryn, SONiyah TECHNIQUE: Imaging protocol: Computed tomographic angiography of the chest with contrast. Exam focused on the arteries. 3D rendering (Not supervised by radiologist): MIP and/or 3D reconstructed images were created by the technologist. Radiation optimization: All CT scans at this facility use at least one of these dose optimization techniques: automated exposure control; mA and/or kV adjustment per patient size (includes targeted exams where dose is matched to clinical indication); or iterative reconstruction. Contrast material: ISO 370; Contrast volume: 100 ml; Contrast route: INTRAVENOUS (IV); COMPARISON: CR XR CHEST PORTABLE 09/16/2023 5:39 PM FINDINGS: Pulmonary arteries: No pulmonary emboli. Aorta: No aortic aneurysm. No aortic dissection. Lungs: A triangular 5 mm fissure based nodule in the right middle lobe (image 48, series 9; image 37, series 1002). No other nodules or airspace consolidation. Pleural spaces: No pneumothorax. No pleural effusion. Heart: No cardiomegaly. No pericardial effusion. Coronary arteries: Small number of coronary artery calcifications. Lymph nodes: No enlarged lymph nodes. Liver: Liver has diffuse low density. Spleen: Spleen measures at least 15.5 cm and AP dimension. Bones/joints: No acute fracture. Soft tissues: No soft tissue masses. IMPRESSION: 1. No pulmonary emboli. No aortic aneurysm or intimal dissection. 2. No acute findings in the chest. 3. Benign, 5 mm, horizontal fissure based nodule in the right middle lobe along the horizontal fissure. No further imaging is necessary. 4. Mild coronary artery disease. 5. Hepatic steatosis. 6. Mild splenomegaly.
[2023-09-16 17:55] LABS: Basophils % 0.4 % (0.1-2.0); Eosinophils % 0.4 % (0.1-12.0); Hematocrit 36.2 % (42.0-52.0); Hemoglobin 13.2 g/dL (14.1-18.0); Lymphocytes # 0.3 K/mm3 (0.7-4.5); Lymphocytes % 5.5 % (10-50); Mean Corpuscular HGB Conc 36.4 g/dL (31.8-35.4); Mean Corpuscular Hemoglobin 32.9 pg (27.0-31.2); Mean Corpuscular Volume 90.5 fl (80-94); Mean Platelet Volume 8.2 fl (7.4-10.4); Monocytes # 0.2 K/mm3 (0.1-1.0); Monocytes % 4.1 % (1.7-9.3); Neutrophils # 4.3 K/mm3 (1.8-7.8); Neutrophils % 89.7 % (37.0-80.0); Platelet Count 104 K/mm3 (142-424); Red Cell Distribution Width 14.7 % (11.5-17.5); White Blood Count 4.8 K/mm3 (4.8-10.8)
[2023-09-16 17:56] LABS: Coronavirus 19, PCR Not Detected (NotDetected); Influenza A, PCR Not Detected (NotDetected); Influenza B, PCR Not Detected (NotDetected)
[2023-09-16] MEDS: NITROGLYCERIN 0.4MG SL TABLET 0.4 MG SL (17:57)
--- NOTE | 2023-09-16 17:57 | PC.NURSE ---
spoke with Gisselle. New orders received. Gisselle did not want STEMI team called in until after pt scan and trop result.
[2023-09-16] MEDS: ACETAMINOPHEN 500MG TAB 1000 MG PO (17:58)
[2023-09-16] MEDS: ASPIRIN 81MG CHEWABLE TABLET 324 MG PO (18:00)
[2023-09-16 18:05] LABS: Chloride 102 mmol/L (98-107); Potassium 4.5 mmoL/L (3.5-5.1); Sodium 133 mmol/L (136-145)
[2023-09-16 18:06] LABS: Blood Urea Nitrogen 26 mg/dl (9-20); Creatinine Clearance Estimated 69 mL/min (50-200); Estimated Glomerular Filt Rate 43 ml/min (>60); GFR (African American) 52 ML/MIN (>60)
[2023-09-16] MEDS: MORPHINE 4MG/ML SYRINGE 4 MG IV (18:06)
[2023-09-16 18:07] LABS: Alanine Aminotransferase 49 U/L (12-78); Albumin Level 4.4 g/dl (3.5-5.0); Albumin/Globulin Ratio 1.2 (1.1-1.8); Alkaline Phosphatase 91 U/L (38-126); Anion Gap 15.5 mEq/L (5-15); Aspartate Amino Transferase 74 U/L (17-59); Calcium 8.7 mg/dl (8.4-10.2); Carbon Dioxide 20 mmol/L (22.0-30.0); Cholesterol 190 mg/dl (140-200); Globulin 3.8 g/dL (1.3-3.2); Glucose 149 mg/dl (74-100); Total Protein,Serum 8.2 g/dl (6.3-8.2); Triglycerides 146 mg/dl (30-150); VLDL Cholesterol 29 mg/dL (0-40)
[2023-09-16 18:08] LABS: Chol/HDL Ratio 5.4 (1-3.5); HDL Cholesterol 35 mg/dl (40-60)
[2023-09-16] MEDS: METOPROLOL TARTRATE 5MG/5ML VIAL 10 MG IV (18:09)
[2023-09-16 18:10] LABS: INR 1.25 (0.9-1.1); Prothrombin Time 13.7 seconds (10.1-12.5)
[2023-09-16 18:12] LABS: MANUAL DIFFERENTIAL MANUAL DIFFERENTIAL (MANUAL DIFF)
[2023-09-16 18:18] LABS: Direct LDL Cholesterol 105.64 mg/dL (100-129)
[2023-09-16 18:22] LABS: Troponin I < 0.01 ng/ml (0.00-0.034)
[2023-09-16] MEDS: IOPAMIDOL-370 (76%);100ML BOTTLE 100 ML IV (18:26)
[2023-09-16] MEDS: SODIUM CHLORIDE 0.9% 10ML SYR (RAD ONLY) 10 ML IV (18:26)
[2023-09-16] MEDS: 0.9 % SODIUM CHLORIDE 50 ML VIAL IV (18:26)
--- NOTE | 2023-09-16 18:35 | ECG_ITS ---
APPROVED REPORT Exam: Resting ECG HR:93 bpm ECG Measurements Heart Rate 93 AXES IN 166 P 24 QRSd 101 QRS 16 QT 324 T -1 QTc 375 Conclusion SINUS RHYTHM MARKED ST ELEVATION, CONSIDER SEPTAL INJURY [MARKED ST ELEVATION W/O NORMALLY INFLECTED T-WAVE IN V1/V2] ACUTE IN Electronically signed by : ESTEPHANIA AMADOR, 09/16/2023 23:24:14
[2023-09-16] MEDS: LACTATED RINGERS 1000ML 1,000 ML 999 ML IV (18:41)
[2023-09-16] MEDS: PRASUGREL 10MG TAB 60 MG PO (18:53)
[2023-09-16] MEDS: HEPARIN SODIUM 5,000 UNIT/ML VIAL 10500 UNIT IV (18:59)
--- NOTE | 2023-09-16 19:06 | IR_ITS ---
APPROVED REPORT Patient Location: [facility] Operator: ROSEMARY Randhawa RT (R) PROCEDURES Left heart catheterization Left ventriculogram Selective coronary angiogram INDICATION Anterior ST elevation myocardial infarction Informed consent was obtained prior to the procedure. COMPLICATIONS NONE Estimated Blood Loss: LESS THAN 10 ML TECHNIQUE One percent lidocaine used to anesthetize the right anterior aspect of the wrist. The right radial artery was accessed via the Seldinger technique. A 6 Macanese sheath was placed in the right radial artery. 2.5 mg of Verapamil, 800 mcg of nitroglycerin, 1mg Lidocaine and 5000 U Heparin were given through the arterial sheath. The papa catheter was also used to perform left heart catheterization, left ventriculogram and selective coronary angiogram. At the end of the procedure the sheath was removed good hemostasis was achieved using Traclet band, patient was transferred to the postop holding area in stable condition. ANGIOGRAPHIC RESULTS The left main artery Normal The left anterior descending artery Has mild proximal 20 to 30% smooth stenosis with remaining vessel normal The circumflex artery Dominant mild 10% luminal irregularities The right coronary artery Nondominant with proximal 20% stenosis mid vessel 30% stenosis and distal eccentric 30% stenosis The GOLDSTEIN ventriculogram reveals Normal 65% The left ventricular end-diastolic pressure 10 mmHg IMPRESSION Mild nonflow limiting coronary disease Brugada's Syndrome mimicking anterior ST elevation myocardial infarction Normal ejection fraction Normal left ventricular end-diastolic pressure PLAN 1. Treatment of acute febrile illness 2. Medical management for coronary disease which should include risk factor modification 3. Echocardiogram in the morning Electronically signed by : Alejandro Pitts MD 09/16/2023 19:41:31
[2023-09-16 19:23] LABS: Lymphocytes % 11 % (10-50); Neutrophils % 89 % (42-76); Platelet Estimate Slight Decrease; RBC Morphology Normal; Total Cells Counted 100
[2023-09-16 19:28] LABS: PTT Heparin (inpatient only) 30.5 Seconds (50-75)
--- NOTE | 2023-09-16 19:30 | ECG_ITS ---
APPROVED REPORT Exam: Resting ECG HR:125 bpm ECG Measurements Heart Rate 125 AXES UT 147 P 24 QRSd 96 QRS 38 QT 302 T 5 QTc 376 Conclusion SINUS TACHYCARDIA POSSIBLE ANTERIOR MYOCARDIAL INFARCTION , PROBABLY OLD [30 ms Q WAVE IN V3/V4, OR R < 0.2 mV IN V4] ST ELEVATION, CONSIDER SEPTAL INJURY [MARKED ST ELEVATION W/O NORMALLY INFLECTED T-WAVE IN V1/V2] ACUTE MS ST elevation with saddleback deformity in V2, diffuse ST depression in the lateral and inferior leads. Brugada versus acute MS Electronically signed by : ESTEPHANIA AMADOR, 09/16/2023 23:25:28
[2023-09-16] MEDS: diphenhydrAMINE 50MG/ML VIAL 50 MG IV (19:35)
[2023-09-16] MEDS: VERAPAMIL 2.5MG/ML 2ML VIAL 2.5 MG IV (19:35)
[2023-09-16] MEDS: NITROGLYCERIN 800MCG/8ML SYR (CATH LAB) 800 MCG IA (19:35)
[2023-09-16] MEDS: LIDOCAINE 1% 10ML MDV 20 ML IJ (19:35)
[2023-09-16] MEDS: 0.9 % SODIUM CHLORIDE 500 ML 25 ML IV (19:36)
[2023-09-16] MEDS: HEPARIN 1,000 UNITS/500ML NS (CATH LAB) 3000 UNIT IV (19:36)
[2023-09-16] MEDS: MIDAZOLAM HCL 1MG/1ML 5ML VIAL 1 MG IV (19:40)
[2023-09-16] MEDS: FENTANYL 100MCG/2ML VIAL 50 MCG IV (19:40)
[2023-09-16] MEDS: IOPAMIDOL-370 (76%);100ML BOTTLE 50 ML IV (20:07)
--- NOTE | 2023-09-16 20:28 | PC.NURSE ---
Patient arrived to floor from [facility] at 20:14.
--- NOTE | 2023-09-16 21:23 | P.HP_ITS ---
History of Present Illness *Admission Date: 09/16/23 *Reason for visit:: Chest pain *History of present illness: Jet Mojica is a 68-year-old male without significant past medical history who presents emergency room tonight with complaints of chest pain. Mr. Mojica states he has been having shortness of breath and chest pain off and on since . States he has had a family ember at home who has been sick and felt like he likely had the same bug that was going around. Has been coughing over the last couple of days. He really attributed his chest pain to his excessive coughing. States his chest pain was worse with inspiration. Chest pain was nonradiating. Denies any associated nausea, vomiting, diaphoresis with it. Denies any abdominal pain, but does endorse some episodes of nonbloody diarrhea. Denies any fever. No focal neurodeficits noted. No dizziness, lighth eadedness. Denies any recent weight gain or weight loss, no swelling in his legs or feet. No focal neurodeficits noted. Denies tobacco use, alcohol use, illicit drug use. Lab work in the ER showed an elevated BUN/creatinine of 26 and 1.6, AST slightly evaded at 74, T. bili at 3. Chest x-ray was nonactionable. CT of the chest showed no pulmonary emboli, no aneurysm or dissection noted, did show some hepatic steatosis with mild splenomegaly. Patient presented to the ER tachycardic with a heart rate 125 and was noted to be febrile with a Tmax of 102.3. Initial EKG showed ST elevation in V2 with ST depression in the inferior lateral leads. Repeat EKG showed ST elevation in the anterior leads consistent with GA with reciprocal changes. Cardiology was consulted, discussed the patient having Brugada syndrome versus ACS. [facility] was activated. She was down for an [facility]. Patient was given a heparin bolus as well as Effient. He was brought from the [facility] to [facility] in stable condition. He will be admitted to the hospitalist service for Brugada syndrome. [facility] Disclaimer: The information contained in this section may have been updated after the patient was seen, as this information can be updated by other users. Surgical History (Updated 09/16/23 @ 20:36 by Leanna Kemp RN) History of ankle surgery Hx of hernia repair Social History Smoking Status: Never smoker alcohol intake: never current occupational status: other Travel in the last 8 weeks: None Review of Systems Constitutional Constitutional: Reports fatigue and Reports malaise *Cardiovascular Cardiovascular: Reports chest pain and Reports dyspnea *Respiratory Respiratory: Reports dyspnea *Gastrointestinal Gastrointestinal: Reports loose stools *Genitourinary Genitourinary: Reports system reviewed and no additional complaints, except as documented *Musculoskeletal Musculoskeletal: Reports system reviewed and no additional complaints, except as documented *Neurologic Neurologic: Reports system reviewed and no additional complaints, except as documented Endocrine Endocrine: Reports fatigue Meds Home Medications and Allergies Home Medications Medication Instructions Recorded Confirmed Type No Known Home Medications 07/15/21 09/16/23 History New Prescriptions to Start Prescriptions: Allergies Allergy/AdvReac Type Severity Reaction Status Date / Time Penicillins Allergy Verified 11/18/21 09:05 Exam Data for Last 24 hours Vital signs and Labs for Last 24 Hours: Temp Pulse Resp BP Pulse Ox O2 Del Method O2 Flow Rate 100.9 F H 81 18 120/53 L 96 Room Air 2 09/16/23 19:25 09/16/23 20:05 09/16/23 20:05 09/16/23 20:05 09/16/23 20:05 09/16/23 21:00 09/16/23 19:25 Laboratory Results - last 24 hr 09/16/23 17:46: WBC 4.8, RBC 4.00 L, Hgb 13.2 L, Hct 36.2 L, MCV 90.5, MCH 32.9 H, MCHC 36.4 H, RDW 14.7, Plt Count 104 L, MPV 8.2, Neut % (Auto) 89.7 H, Lymph % (Auto) 5.5 L, [place] % (Auto) 4.1, Eos % (Auto) 0.4, Baso % (Auto) 0.4, Neut # (Auto) 4.3, Lymph # (Auto) 0.3 L, [place] # (Auto) 0.2, Eos # (Auto) 0.0, Baso # (Auto) 0.0, Total Counted 100, Neutrophils % (Manual) 89 H, Lymphocytes % (Manual) 11, Platelet Estimate Slight decrease, RBC Morphology Normal, PT 13.7 H , INR 1.25 H, APTT 30.5 L, Sodium 133 L, Potassium 4.5, Chloride 102, Carbon Dioxide 20 L, Anion Gap 15.5 H, BUN 26 H, Creatinine 1.60 H, Estimated Creat Clear 69, Estimated GFR 43 L, Est GFR ( Amer) 52 L, Glucose 149 H, Calcium 8.7, Total Bilirubin 3.0 H, AST 74 H, ALT 49, Alkaline Phosphatase 91, Troponin I < 0.01, Total Protein 8.2, Albumin 4.4, Globulin 3.8 H, Albumin/Globulin Ratio 1.2, Triglycerides 146, Cholesterol 190, LDL Cholesterol Direct 105.64, VLDL Cholesterol 29, HDL Cholesterol 35 L, Cholesterol/HDL Ratio 5.4 H, SARS-CoV-2 (PCR) Not detected, Influenza A Untype (PCR) Not detected, Influenza Type B (PCR) Not detected I & O for Last 24 hours: Intake & Output 09/13/23 09/14/23 09/15/23 09/16/23 23:59 23:59 23:59 23:59 Weight 105.778 kg *Routine HEENT Exam Head: Present normocephalic and atraumatic Eye: Present EOMI and PERRL ENT: Present mucous membranes moist *Routine Neck Exam Neck: Present supple and full ROM *Routine Respiratory Exam Respiratory: Present CTA bilaterally *Routine Cardiovascular Exam Cardiovascular: Present RRR, Normal S1 and Normal S2 *Routine Abdominal Exam Abdominal: Present soft and normoactive bowel sounds *Routine Rectal Exam Rectal:: deferred *Routine Genitalia Exam Genitalia:: deferred *Routine Extremities Exam Extremities: Present full ROM and pulses intact *Routine Skin Exam Skin: Present intact *Routine Neurological Exam Neurological: Present alert and oriented X3 Assessment and Plan *Assessment and plan (1) Brugada syndrome: Status: Acute Category: Medical Code(s): I49.8 - Other specified cardiac arrhythmias (2) Fever: Status: Acute Category: Medical Code(s): R50.9 - Fever, unspecified (3) ST elevation (STEMI) myocardial infarction: Status: Acute Category: Medical Code(s): I21.3 - ST elevation (STEMI) myocardial infarction of unspecified site (4) TATYANA (acute kidney injury): Status: Acute Category: Medical Code(s): N17.9 - Acute kidney failure, unspecified Plan Assessment: This is a 68-year-old male who is being admitted for chest pain with Brugada syndrome mimicking an anterior STEMI. On my exam, patient is sitting up in bed in no acute distress. No complaints at this time. Plan: Admit to observation-MedSurg Brugada syndrome likely secondary to viral illness -LHC showed mild nonflow limiting CAD, patient with normal ejection fraction and normal LVEDP -Per cardiology recs, echo in the morning -Pain management as needed -Antipyretics as needed TATYANA -Likely related to poor p.o. intake and recent viral illness -Patient received fluid bolus -Monitor BUN/creatinine -Avoid nephrotoxic medications DVT prophylaxis: Heparin CODE STATUS: Full code Surrogate decision maker: Lyndsey [phone] Skin: Low risk
[2023-09-17] VITALS (12 sets, daily range): BP systolic 102–159; BP diastolic 65–78; PULSE 64–108; RESP 16–20; TEMP 36.4–37.8; O2SAT 93–98; BMI 39.8
[2023-09-17] MEDS: ACETAMINOPHEN 325MG TAB 1000 MG PO (01:27)
--- NOTE | 2023-09-17 05:32 | PC.NURSE ---
Good night. Radial band off around 11 pm. Tegaderm and gauze placed and CDI. Pt did develop extreme shaking episodes which he reports had been occurring at home. Temp was 98.5. Provider was notified with order for tylenol 100 mg. Pt temp spiked to around 100 around 2 am but resolved after tylenol and has rested well since. VSS with temp now normal
--- NOTE | 2023-09-17 06:52 | CA_ITS ---
APPROVED REPORT EXAM: Comprehensive 2D, Doppler, and color-flow Echocardiogram Food And Beverage Analyst: Gloria Lynch CRT Ht: 5 ft 8 in Wt: 233lbs BSA: 2.18 BP: 120/53 mmHg Indications: Chest Pain, Shortness of Breath, cath 09/16/23, stemi 2D Dimensions LA Volume 49.60 mL LA Volume Index 22.20 mL/m2 (M/F) 16-34 M-Mode Dimensions RVDd 2.74 cm (0.9-2.6) LA Diam 3.35 cm (1.9-4.0) LVDd 5.36 cm (3.5-5.7) LVDs 3.38 cm (3.5-5.7) IVSd 1.29 cm (0.6-1.1) PWd 0.89 cm (0.6-1.1) EF (Teich) 66.30% FS 36.90% EDV (Teich) 138.90 mL ESV (Teich) 46.80 mL LV Diastology E Decel Time 223 (160-240 msec) E/A Ratio 0.61 MED A' 7.30 cm/s LAT A' 9.50 cm/s Aortic Valve AO Peak GR. 5.90 mmHg Mitral Valve MV A Velocity 90.0 (40-130 cm/s) E/A Ratio 0.61 Pulmonary Valve PV Peak Velocity 202.0 (50-150 cm/s) Tricuspid Valve TR P. Velocity 325.00 cm/s RAP Estimate 10.00 mmHg RVSP 52.30 mmHg Left Ventricle The left ventricle is normal size. The left ventricular systolic function is normal. The left ventricular ejection fraction is within the normal range. There is normal left ventricular wall thickness. There is normal LV segmental wall motion. The left ventricular diastolic function is normal. LVEF is 55%. Right Ventricle Right ventricle is mildly dilated. Right ventricle is mildly hypokinetic. Atria The left atrium size is normal. The right atrium size is normal. There is no Doppler evidence of interatrial shunt. Aortic Valve The aortic valve opens well. There is no aortic valvular stenosis. No aortic regurgitation is present. Mitral Valve The mitral valve is normal in structure. No evidence of mitral valve stenosis. Trace mitral regurgitation. Tricuspid Valve The tricuspid valve leaflets are thin and pliable. Mild tricuspid regurgitation. RVSP is 30-35 mmHg. Pulmonic Valve The pulmonary valve is normal in structure. Trace pulmonic regurgitation. Great Vessels The aortic root is normal in size. The ascending aorta is not well-visualized. IVC is normal in size and collapses >50% with inspiration. Pericardium There is no pericardial effusion. Other Information Study Quality: Adequate Conclusion Normal LV systolic function. Mild RV dilation with mild reduction in RV function. Mild TR. RVSP 30-35 mmHg. Electronically signed by : Jahaira Wiseman MD 09/19/2023 13:29:00
[2023-09-17 07:02] LABS: Monocytes # 0.2 K/mm3 (0.1-1.0); Neutrophils # 2.6 K/mm3 (1.8-7.8)
[2023-09-17 07:04] LABS: Anion Gap 9.2 mEq/L (5-15); Blood Urea Nitrogen 26 mg/dl (9-20); Calcium 8.4 mg/dl (8.4-10.2); Carbon Dioxide 22 mmol/L (22.0-30.0); Chloride 105 mmol/L (98-107); Creatinine Clearance Estimated 77 mL/min (50-200); Estimated Glomerular Filt Rate 51 ml/min (>60); GFR (African American) 61 ML/MIN (>60); Glucose 129 mg/dl (74-100); Magnesium 2.1 mg/dl (1.6-2.3); Potassium 3.2 mmoL/L (3.5-5.1); Sodium 133 mmol/L (136-145)
[2023-09-17 07:14] LABS: Basophils % 0.3 % (0.1-2.0); Eosinophils % 0.1 % (0.1-12.0); Hematocrit 35.2 % (42.0-52.0); Lymphocytes # 0.3 K/mm3 (0.7-4.5); Lymphocytes % 10.6 % (10-50); Mean Corpuscular HGB Conc 32.4 g/dL (31.8-35.4); Mean Corpuscular Hemoglobin 29.4 pg (27.0-31.2); Mean Corpuscular Volume 90.6 fl (80-94); Mean Platelet Volume 8.8 fl (7.4-10.4); Monocytes % 6.7 % (1.7-9.3); Neutrophils % 82.3 % (37.0-80.0); Platelet Count 101 K/mm3 (142-424); Red Blood Count 3.88 M/mm3 (4.60-6.20); Red Cell Distribution Width 14.8 % (11.5-17.5); White Blood Count 3.1 K/mm3 (4.8-10.8)
[2023-09-17 07:21] LABS: Hemoglobin 11.4 g/dL (14.1-18.0)
[2023-09-17 08:38] LABS: Hemoglobin A1C 6.5 % (4.0-6.0)
--- NOTE | 2023-09-17 08:47 | P.PN_ITS ---
Subjective *Date: 09/17/23 *Time: 15:13 Interval history: The patient is seen and examined today at bedside. The patient is accompanied by his . He reports he normally receives care at the [facility] in [facility]. I am accompanied by his nurse Yaz. Nursing staff reports that he remains afebrile with stable vital signs and saturating appropriately on room air. He underwent cardiac catheterization last night identifying non-obstructive disease. His echocardiogram is pending. The patient denies abdominal pain, nausea, vomiting, dyspnea, rashes or diarrhea. Exam Data for Last 24 hours Vital signs and Labs for Last 24 Hours: Temp Pulse Resp BP Pulse Ox O2 Del Method O2 Flow Rate 98.7 F 64 16 129/68 93 L Room Air 2 09/17/23 08:00 09/17/23 08:00 09/17/23 08:00 09/17/23 08:00 09/17/23 08:00 09/17/23 08:00 09/16/23 19:25 Laboratory Results - last 24 hr 09/16/23 17:46: WBC 4.8, RBC 4.00 L, Hgb 13.2 L, Hct 36.2 L, MCV 90.5, MCH 32.9 H, MCHC 36.4 H, RDW 14.7, Plt Count 104 L, MPV 8.2, Neut % (Auto) 89.7 H, Lymph % (Auto) 5.5 L, [place] % (Auto) 4.1, Eos % (Auto) 0.4, Baso % (Auto) 0.4, Neut # (Auto) 4.3, Lymph # (Auto) 0.3 L, [place] # (Auto) 0.2, Eos # (Auto) 0.0, Baso # (Auto) 0.0, Total Counted 100, Neutrophils % (Manual) 89 H, Lymphocytes % (M anual) 11, Platelet Estimate Slight decrease, RBC Morphology Normal, PT 13.7 H, INR 1.25 H, APTT 30.5 L, Sodium 133 L, Potassium 4.5, Chloride 102, Carbon Dioxide 20 L, Anion Gap 15.5 H, BUN 26 H, Creatinine 1.60 H, Estimated Creat Clear 69, Estimated GFR 43 L, Est GFR ( Amer) 52 L, Glucose 149 H, Calcium 8.7, Total Bilirubin 3.0 H, AST 74 H, ALT 49, Alkaline Phosphatase 91, Troponin I < 0.01, Total Protein 8.2, Albumin 4.4, Globulin 3.8 H, Albumin/Globulin Ratio 1.2, Triglycerides 146, Cholesterol 190, LDL Cholesterol Direct 105.64, VLDL Cholesterol 29, HDL Cholesterol 35 L, Cholesterol/HDL Ratio 5.4 H, SARS-CoV-2 (PCR) Not detected, Influenza A Untype (PCR) Not detected, Influenza Type B (PCR) Not detected 09/17/23 05:51: WBC 3.1 L D, RBC 3.88 L, Hgb 11.4 L D, Hct 35.2 L, MCV 90.6, MCH 29.4, MCHC 32.4, RDW 14.8, Plt Count 101 L, MPV 8.8, Neut % (Auto) 82.3 H, Lymph % (Auto) 10.6, [place] % (Auto) 6.7, Eos % (Auto) 0.1, Baso % (Auto) 0.3, Neut # (Auto) 2.6, Lymph # (Auto) 0.3 L, [place] # (Auto) 0.2, Eos # (Auto) 0.0, Baso # (Auto) 0.0, Sodium 133 L, Potassium 3.2 L D, Chloride 105, Carbon Dioxide 22, Anion Gap 9.2, BUN 26 H, Creatinine 1.40 H, Estimated Creat Clear 77, Estimated GFR 51 L, Est GFR ( Amer) 61, Glucose 129 H, Hemoglobin A1c 6.5 H, Calcium 8.4, Magnesium 2.1 I & O for Last 24 hours: Intake & Output 09/14/23 09/15/23 09/16/23 09/17/23 23:59 23:59 23:59 23:59 Intake Total 160 / 160 Output Total 300 / 300 Balance -140 / -140 Weight 105.778 kg 105.778 kg Constitutional Constitutional: no acute distress, morbidly obese and cooperative *Routine HEENT Exam Head: Present normocephalic Eye: Present EOMI ENT: Present mucous membranes moist *Routine Neck Exam Neck: Present supple; Absent JVD or lymphadenopathy *Routine Respiratory Exam Respiratory: Present CTA bilaterally, normal respiratory effort and symmetric chest movement *Routine Cardiovascular Exam Cardiovascular: Present RRR *Routine Abdominal Exam Abdominal: Present soft; Absent tenderness *Routine Extremities Exam Extremities: Present full ROM; Absent edema *Routine Skin Exam Skin: Present warm; Absent rash *Routine Neurological Exam Neurological: Present alert, oriented X3, moving all extremities, vision grossly intact, hearing grossly intact and normal speech; Absent sensory deficit or motor deficit Routine Psychiatric Exam Psychiatric: Present normal affect, normal thought process, cooperative, good insight and good judgment Assessment and Plan *Assessment and plan (1) Brugada syndrome: Status: Acute Category: Medical Code(s): I49.8 - Other specified cardiac arrhythmias (2) Fever: Status: Acute Category: Medical Code(s): R50.9 - Fever, unspecified (3) ST elevation (STEMI) myocardial infarction: Status: Acute Category: Medical Code(s): I21.3 - ST elevation (STEMI) myocardial infarction of unspecified site (4) TATYANA (acute kidney injury): Status: Acute Category: Medical Code(s): N17.9 - Acute kidney failure, unspecified Plan This is a 68-year-old male who is being admitted for chest pain with Brugada syndrome mimicking an anterior STEMI. Brugada syndrome likely secondary to viral illness Telemetry monitoring ED troponin negative Status post LHC with mild nonflow limiting CAD and normal EF Cardiology following Echocardiogram is pending Aspirin 81 mg daily Statin therapy Parenterally administered controlled substance for comfort care Antipyretic therapy Trending labs and inflammatory markers TATYANA Baseline creatinine 1.05 Gentle IV fluid resuscitation Trending electrolytes and creatinine Avoiding NSAIDs Viral illness Transaminitis Supportive therapy Pulse oximetry monitoring Currently oxygenating appropriately on room air Chest CTA with no acute infiltrates or opacities Chest x-ray with no acute disease CBC with mild leukopenia and platelets 101 Respiratory PCR negative for COVID-19 and influenza Trending labs and inflammatory markers Diabetes Routine blood sugar monitoring Hemoglobin A1c 6.5% Consistent carbohydrate diet with appropriate calorie consumption BMI [address] with fatty liver Calorie appropriate diet Outpatient discussion with PCP concerning sleep study and current strategies for effective weight loss DVT prophylaxis: Heparin CODE STATUS: Full code Surrogate decision maker: Lyndsey [phone] Skin: Low risk The patient was hospitalized day 1 with above diagnoses complicated by his viral illness and BMI 40. We appreciate multi site leasing consultant evaluation, procedural intervention and ongoing recommendations. His echocardiogram is pending. Case management is assisting with discharge needs. Barriers to discharge currently include assessing response to therapy, trending inflammatory markers, labs, and echocardiogram results. Expected date of discharge 09/18/2023 pending morning labs.
--- NOTE | 2023-09-17 11:10 | EXP.CARD.CON ---
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 Presented with several days of worsening fever chills and productive cough. States he has been around family members who are sick. On arrival to the ER his workup included EKG which showed ST elevations in leads V1 and V2. Given that he was also complaining of chest pain he was taken to the [facility] emergently but cath revealed mild nonflow-limiting disease and normal EF. He was diagnosed with Brugada syndrome. Tmax 102. He is on antibiotics and being treated by hospitalist for respiratory infection. Review of telemetry shows no ventricular arrhythmias. Patient denies chest pain, states he is still having chills as of last night. Denies any personal history of cardiac arrest or syncope. [facility] Disclaimer: The information contained in this section may have been updated after the patient was seen, as this information can be updated by other users. Surgical History History of ankle surgery Hx of hernia repair Social History Smoking Status: Never smoker alcohol intake: never current occupational status: other Travel in the last 8 weeks: None Review of Systems Constitutional Constitutional: Reports chills, Denies fatigue and Denies weakness Eyes Eyes: Denies loss of vision ENT Ears, Nose, Mouth, and Throat: Denies hearing loss *Cardiovascular Cardiovascular: Denies chest pain and Reports dyspnea *Respiratory Respiratory: Reports cough, Reports dyspnea and Reports wheezing *Gastrointestinal Gastrointestinal: Denies change in stool character, Denies nausea and Denies vomiting *Genitourinary Genitourinary: Denies difficulty urinating *Musculoskeletal Musculoskeletal: Denies muscle weakness Integumentary/Breasts Skin/Breast: Denies changing lesions *Neurologic Neurologic: Reports system reviewed and no additional complaints, except as documented, Denies loss of vision and Denies weakness Endocrine Endocrine: Denies fatigue Allergic/Immunologic Allergic/Immunologic: Reports wheezing Exam Data for Last 24 hours Vital signs and Labs for Last 24 Hours: Temp Pulse Resp BP Pulse Ox O2 Del Method O2 Flow Rate 98.7 F 64 16 129/68 93 L Room Air 2 09/17/23 08:00 09/17/23 08:00 09/17/23 08:00 09/17/23 08:00 09/17/23 08:00 09/17/23 08:50 09/16/23 19:25 Laboratory Results - last 24 hr 09/16/23 17:46: WBC 4.8, RBC 4.00 L, Hgb 13.2 L, Hct 36.2 L, MCV 90.5, MCH 32.9 H, MCHC 36.4 H, RDW 14.7, Plt Count 104 L, MPV 8.2, Neut % (Auto) 89.7 H, Lymph % (Auto) 5.5 L, [place] % (Auto) 4.1, Eos % (Auto) 0.4, Baso % (Auto) 0.4, Neut # (Auto) 4.3, Lymph # (Auto) 0.3 L, [place] # (Auto) 0.2, Eos # (Auto) 0.0, Baso # (Auto) 0.0, Total Counted 100, Neutrophils % (Manual) 89 H, Lymphocytes % (Manual) 11, Platelet Estimate Slight decrease, RBC Morphology Normal, PT 13.7 H, INR 1.25 H, APTT 30.5 L, Sodium 133 L, Potassium 4.5, Chloride 102, Carbon Dioxide 20 L, Anion Gap 15.5 H, BUN 26 H, Creatinine 1.60 H, Estimated Creat Clear 69, Estimated GFR 43 L, Est GFR ( Amer) 52 L, Glucose 149 H, Calcium 8.7, Total Bilirubin 3.0 H, AST 74 H, ALT 49, Alkaline Phosphatase 91, Troponin I < 0.01, Total Protein 8.2, Albumin 4.4, Globulin 3.8 H, Albumin/Globulin Ratio 1.2, Triglycerides 146, Cholesterol 190, LDL Cholesterol Direct 105.64, VLDL Cholesterol 29, HDL Cholesterol 35 L, Cholesterol/HDL Ratio 5.4 H, SARS-CoV-2 (PCR) Not detected, Influenza A Untype (PCR) Not detected, Influenza Type B (PCR) Not detected 09/17/23 05:51: WBC 3.1 L D, RBC 3.88 L, Hgb 11.4 L D, Hct 35.2 L, MCV 90.6, MCH 29.4, MCHC 32.4, RDW 14.8, Plt Count 101 L, MPV 8.8, Neut % (Auto) 82.3 H, Lymph % (Auto) 10.6, [place] % (Auto) 6.7, Eos % (Auto) 0.1, Baso % (Auto) 0.3, Neut # (Auto) 2.6, Lymph # (Auto) 0.3 L, [place] # (Auto) 0.2, Eos # (Auto) 0.0, Baso # (Auto) 0.0, Sodium 133 L, Potassium 3.2 L D, Chloride 105, Carbon Dioxide 22, Anion Gap 9.2, BUN 26 H, Creatinine 1.40 H, Estimated Creat Clear 77, Estimated GFR 51 L, Est GFR ( Amer) 61, Glucose 129 H, Hemoglobin A1c 6.5 H, Calcium 8.4, Magnesium 2.1 I & O for Last 24 hours: Intake & Output 09/14/23 09/15/23 09/16/23 09/17/23 23:59 23:59 23:59 23:59 Intake Total 160 / 160 Output Total 300 / 300 Balance -140 / -140 Weight 233 lb 3.2 oz 233 lb 3.209 oz Meds Home Medications and Allergies Home Medications Medication Instructions Recorded Confirmed Type No Known Home Medications 07/15/21 09/16/23 History New Prescriptions to Start Prescriptions: Allergies Allergy/AdvReac Type Severity Reaction Status Date / Time Penicillins Allergy Verified 11/18/21 09:05 Assessment and Plan *Assessment and plan (1) Brugada syndrome: Status: Acute Category: Medical Code(s): I49.8 - Other specified cardiac arrhythmias (2) TATYANA (acute kidney injury): Status: Acute Category: Medical Code(s): N17.9 - Acute kidney failure, unspecified (3) Fever: Status: Acute Category: Medical Code(s): R50.9 - Fever, unspecified (4) Respiratory infection: Status: Acute Category: Medical Code(s): J98.8 - Other specified respiratory disorders Plan Brugada syndrome -New diagnosis this admission in setting of fever 102F with ST elevation in leads V1 V2 but nonobstructive disease on heart cath. -Patient denies any prior history of cardiac arrest, palpitations, syncope. He takes no home meds and uses no recreational drugs. -Plan: Check 2D echo. Will place 30-day event monitor at discharge and arrange cardiac MRI. Consider EP referral outpatient. 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
[2023-09-17] MEDS: POTASSIUM CHLORIDE 20MEQ TAB 40 MEQ PO (11:40)
[2023-09-17] MEDS: 0.9 % SODIUM CHLORIDE 1000ML 1,000 ML 125 ML IV (11:46)
[2023-09-17] MEDS: ACETAMINOPHEN 500MG TAB 1000 MG PO (12:54)
--- NOTE | 2023-09-17 16:13 | PC.NURSE ---
A&OX4. PT HAS TOLERATED RA WELL THROUGHOUT SHIFT. RESPIRATIONS REGULAR AND UNLABORED. LUNG SOUNDS CLEAR THROUGHOUT. SOFT AND NONTENDER ABDOMEN. NO REPORTS OF BM THUS FAR. VOIDS PER BATHROOM INDEPENDENTLY. 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 +1 PULSES NOTED THROUGHOUT. NO EDEMA NOTED. SPOUSE DID VISIT THIS SHIFT. NO QUESTIONS OR CONCERNS VOICED. NO REPORTS OF PAIN THUS FAR. CALL LIGHT WITHIN REACH. BED IN LOWEST POSITION. PT HAS REMAINED ON TELE THROUGHOUT SHIFT. R RADIAL CATH SITE NOTED. DRESSING CDI. PT HAS REMAINED AFEBRILE THUS FAR.
[2023-09-17] MEDS: ATORVASTATIN 40MG TABLET 40 MG PO (20:02)
[2023-09-18] VITALS: BP 148/81; PULSE 100; RESP 20; TEMP 37.6; O2SAT 97
[2023-09-18 04:00] VITALS: BP 144/72; PULSE 90; PULSE 95; RESP 16; TEMP 37.2; O2SAT 96; BMI 41.0
[2023-09-18] MEDS: 0.9 % SODIUM CHLORIDE 1000ML 1,000 ML 125 ML IV (04:21)
[2023-09-18 06:05] LABS: Basophils % 0.4 % (0.1-2.0); Eosinophils % 1.4 % (0.1-12.0); Hematocrit 34.3 % (42.0-52.0); Hemoglobin 11.3 g/dL (14.1-18.0); Lymphocytes # 0.3 K/mm3 (0.7-4.5); Mean Corpuscular HGB Conc 32.9 g/dL (31.8-35.4); Mean Corpuscular Hemoglobin 29.7 pg (27.0-31.2); Mean Corpuscular Volume 90.2 fl (80-94); Mean Platelet Volume 8.9 fl (7.4-10.4); Monocytes # 0.2 K/mm3 (0.1-1.0); Monocytes % 6.1 % (1.7-9.3); Neutrophils # 1.9 K/mm3 (1.8-7.8); Neutrophils % 80.1 % (37.0-80.0); Platelet Count 120 K/mm3 (142-424); Red Cell Distribution Width 14.6 % (11.5-17.5); White Blood Count 2.4 K/mm3 (4.8-10.8)
[2023-09-18 06:13] LABS: Alanine Aminotransferase 45 U/L (12-78); Albumin Level 3.3 g/dl (3.5-5.0); Albumin/Globulin Ratio 1.1 (1.1-1.8); Alkaline Phosphatase 137 U/L (38-126); Anion Gap 10.6 mEq/L (5-15); Aspartate Amino Transferase 44 U/L (17-59); Bilirubin,Total 0.7 mg/dl (0.2-1.3); Blood Urea Nitrogen 14 mg/dl (9-20); Calcium 8.5 mg/dl (8.4-10.2); Carbon Dioxide 21 mmol/L (22.0-30.0); Chloride 108 mmol/L (98-107); Creatinine Clearance Estimated 60 mL/min (50-200); Estimated Glomerular Filt Rate 75 ml/min (>60); GFR (African American) 90 ML/MIN (>60); Globulin 2.9 g/dL (1.3-3.2); Glucose 116 mg/dl (74-100); Potassium 3.6 mmoL/L (3.5-5.1); Sodium 136 mmol/L (136-145); Total Protein,Serum 6.2 g/dl (6.3-8.2)
[2023-09-18 06:31] LABS: Procalcitonin 2.01 ng/mL (0.0-2.0)
--- NOTE | 2023-09-18 06:47 | PC.NURSE ---
pt a/o x4. no c/o voiced to staff. pt slept well through night. call light within reach.
[2023-09-18 08:00] VITALS: BP 144/78; PULSE 90; PULSE 91; RESP 20; TEMP 37.4; O2SAT 95
[2023-09-18] MEDS: METOPROLOL SUCCINATE XL 25MG TABLET 25 MG PO (08:17)
[2023-09-18] MEDS: ASPIRIN 81MG CHEWABLE TABLET 81 MG PO (08:17)
[2023-09-18 12:00] VITALS: BP 139/75; PULSE 95; RESP 18; TEMP 37.4; O2SAT 96
--- NOTE | 2023-09-18 12:57 | EXP.CARD.CON ---
[facility] Disclaimer: The information contained in this section may have been updated after the patient was seen, as this information can be updated by other users. Surgical History History of ankle surgery Hx of hernia repair Social History Smoking Status: Never smoker alcohol intake: never current occupational status: other Travel in the last 8 weeks: None Review of Systems Constitutional Constitutional: Denies weakness Eyes Eyes: Denies loss of vision *Neurologic Neurologic: Reports system reviewed and no additional complaints, except as documented, Denies loss of vision and Denies weakness Exam Data for Last 24 hours Vital signs and Labs for Last 24 Hours: Temp Pulse Resp BP Pulse Ox O2 Del Method O2 Flow Rate 99.4 F 91 H 20 144/78 H 95 Room Air 2 09/18/23 08:00 09/18/23 08:00 09/18/23 08:00 09/18/23 08:00 09/18/23 08:00 09/18/23 11:18 09/16/23 19:25 Laboratory Results - last 24 hr 09/18/23 05:30: WBC 2.4 L, RBC 3.80 L, Hgb 11.3 L, Hct 34.3 L, MCV 90.2, MCH 29.7, MCHC 32.9, RDW 14.6, Plt Count 120 L, MPV 8.9, Neut % (Auto) 80.1 H, Lymph % (Auto) 12.0, [place] % (Auto) 6.1, Eos % (Auto) 1.4, Baso % (Auto) 0.4, Neut # (Auto) 1.9, Lymph # (Auto) 0.3 L, [place] # (Auto) 0.2, Eos # (Auto) 0.0, Baso # (Auto) 0.0, Sodium 136, Potassium 3.6, Chloride 108 H, Carbon Dioxide 21 L, Anion Gap 10.6, BUN 14 D, Creatinine 1.00 D, Estimated Creat Clear 60, Estimated GFR 75, Est GFR ( Amer) 90 D, Glucose 116 H, Calcium 8.5, Total Bilirubin 0.7, AST 44 D, ALT 45, Alkaline Phosphatase 137 H, Total Protein 6.2 L, Albumin 3.3 L D, Globulin 2.9, Albumin/Globulin Ratio 1.1, Procalcitonin 2.01 H I & O for Last 24 hours: Intake & Output 09/15/23 09/16/23 09/17/23 09/18/23 23:59 23:59 23:59 23:59 Intake Total 1850 / 1850 2466 / 2466 Output Total 1825 / 1825 0 / 0 Balance 2466 / 2466 Weight 233 lb 3.2 oz 233 lb 3.209 oz 240 lb 5 oz Meds Home Medications and Allergies Home Medications Medication Instructions Recorded Confirmed Type No Known Home Medications 07/15/21 09/16/23 History New Prescriptions to Start Prescriptions: Allergies Allergy/AdvReac Type Severity Reaction Status Date / Time Penicillins Allergy Verified 11/18/21 09:05
--- NOTE | 2023-09-18 12:58 | EXP.CARD.PN ---
Subjective Subjective Date: 09/18/23 Time: 10:00 Interval history: No events overnight. ECHO unremarkable. Fevers resolved. Pt feels ready for discharge. Exam Data for Last 24 hours Vital signs and Labs for Last 24 Hours: Temp Pulse Resp BP Pulse Ox O2 Del Method O2 Flow Rate 99.4 F 91 H 20 144/78 H 95 Room Air 2 09/18/23 08:00 09/18/23 08:00 09/18/23 08:00 09/18/23 08:00 09/18/23 08:00 09/18/23 11:18 09/16/23 19:25 Laboratory Results - last 24 hr 09/18/23 05:30: WBC 2.4 L, RBC 3.80 L, Hgb 11.3 L, Hct 34.3 L, MCV 90.2, MCH 29.7, MCHC 32.9, RDW 14.6, Plt Count 120 L, MPV 8.9, Neut % (Auto) 80.1 H, Lymph % (Auto) 12.0, [place] % (Auto) 6.1, Eos % (Auto) 1.4, Baso % (Auto) 0.4, Neut # (Auto) 1.9, Lymph # (Auto) 0.3 L, [place] # (Auto) 0.2, Eos # (Auto) 0.0, Baso # (Auto) 0.0, Sodium 136, Potassium 3.6, Chloride 108 H, Carbon Dioxide 21 L, Anion Gap 10.6, BUN 14 D, Creatinine 1.00 D, Estimated Creat Clear 60, Estimated GFR 75, Est GFR ( Amer) 90 D, Glucose 116 H, Calcium 8.5, Total Bilirubin 0.7, AST 44 D, ALT 45, Alkaline Phosphatase 137 H, Total Protein 6.2 L, Albumin 3.3 L D, Globulin 2.9, Albumin/Globulin Ratio 1.1, Procalcitonin 2.01 H I & O for Last 24 hours: Intake & Output 09/15/23 09/16/23 09/17/23 09/18/23 23:59 23:59 23:59 23:59 Intake Total 1850 / 1850 2466 / 2466 Output Total 1825 / 1825 0 / 0 Balance 2466 / 2466 Weight 233 lb 3.2 oz 233 lb 3.209 oz 240 lb 5 oz Constitutional Constitutional: no acute distress and cooperative *Routine HEENT Exam Eye: Present PERRL *Routine Respiratory Exam Respiratory: Present CTA bilaterally; Absent accessory muscle use, wheezes or crackles *Routine Cardiovascular Exam Cardiovascular: Present RRR, Normal S1 and Normal S2; Absent murmur, gallop or rubs *Routine Abdominal Exam Abdominal: Present soft; Absent tenderness *Routine Extremities Exam Extremities: Present pulses intact; Absent cyanosis or edema *Routine Skin Exam Skin: Present intact; Absent erythema or wounds *Routine Neurological Exam Neurological: Present alert and oriented X3 Routine Psychiatric Exam Psychiatric: Present cooperative Progress Note: A&P Assessment and plan (1) Brugada syndrome: Status: Acute (2) Fever: Status: Acute (3) TATYANA (acute kidney injury): Status: Acute Assessment and Plan Assessment and Plan for All Diagnoses:: Brugada syndrome -New diagnosis this admission in setting of fever 102F with ST elevation in leads V1 V2 but nonobstructive disease on heart cath. -Patient denies any prior history of cardiac arrest, palpitations, syncope. He takes no home meds and uses no recreational drugs. -ECHO prelim here is unremarkable -Tele: no VT or arrhythmia -Plan: Cont plans with 30 day event monitor. Office f/u 2 weeks at which time we will order Cardiac MRI and EP referral. 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
--- NOTE | 2023-09-18 16:47 | P.DS_ITS ---
General Admission date:: 09/16/23 Discharge date: 09/18/23 HPI HPI HPI: Jet Mojica is a 68-year-old male without significant past medical history who presents emergency room tonight with complaints of chest pain. Mr. Mojica states he has been having shortness of breath and chest pain off and on since . States he has had a family ember at home who has been sick and felt like he likely had the same bug that was going around. Has been coughing over the last couple of days. He really attributed his chest pain to his excessive coughing. States his chest pain was worse with inspiration. Chest pain was nonradiating. Denies any associated nausea, vomiting, diaphoresis with it. Denies any abdominal pain, but does endorse some episodes of nonbloody diarrhea. Denies any fever. No focal neurodeficits noted. No dizziness, lightheadedness. Denies any recent weight gain or weight loss, no swelling in his legs or feet. No focal neurodeficits noted. Denies tobacco use, alcohol use, illicit drug use. Lab work in the ER showed an elevated BUN/creatinine of 26 and 1.6, AST slightly evaded at 74, T. bili at 3. Chest x-ray was nonactionable. CT of the chest showed no pulmonary emboli, no aneurysm or dissection noted, did show some hepatic steatosis with mild splenomegaly. Patient presented to the ER tachycardic with a heart rate 125 and was noted to be febrile with a Tmax of 102.3. Initial EKG showed ST elevation in V2 with ST depression in the inferior lateral leads. Repeat EKG showed ST elevation in the anterior leads consistent with IN with reciprocal changes. Cardiology was consulted, discussed the patient having Brugada syndrome versus ACS. Food Counter Worker was activated. She was down for an [facility]. Patient was given a heparin bolus as well as Effient. He was brought from the [facility] to [facility] in stable condition. He will be admitted to the hospitalist service for Brugada syndrome. Hospital Course Hospital Course Hospital Course: Patient presented to hospital with chest pain and fevers. Patient ultimately diagnosed with Brugada syndrome, nonobstructive CAD, TATYANA, and viral illness. Patient given maintenance IV fluids and Tylenol during hospitalization with resolution of fevers. Patient's kidney function normalized after maintenance IV fluids. Patient had cardiac catheterization done during hospitalization showing nonobstructive CAD 20 to 30%. Patient also diagnosed with Brugada syndrome by cardiology during hospitalization. Echocardiogram done during hospitalization showed no overt abnormalities per cardiology. Patient discharged from hospital with 30-day event monitor, and with plans to follow-up with cardiology on an outpatient basis for possible cardiac MRI and/or EP referral. Patient also advised to follow-up with primary care physician for further management of resolving TATYANA/respiratory viral illness. Exam Data for Last 24 hours Vital signs and Labs for Last 24 Hours: Temp Pulse Resp BP Pulse Ox O2 Del Method O2 Flow Rate 99.4 F 95 H 18 139/75 96 Room Air 2 09/18/23 12:00 09/18/23 12:00 09/18/23 12:00 09/18/23 12:00 09/18/23 12:00 09/18/23 15:10 09/16/23 19:25 Laboratory Results - last 24 hr 09/18/23 05:30: WBC 2.4 L, RBC 3.80 L, Hgb 11.3 L, Hct 34.3 L, MCV 90.2, MCH 29.7, MCHC 32.9, RDW 14.6, Plt Count 120 L, MPV 8.9, Neut % (Auto) 80.1 H, Lymph % (Auto) 12.0, [place] % (Auto) 6.1, Eos % (Auto) 1.4, Baso % (Auto) 0.4, Neut # (Auto) 1.9, Lymph # (Auto) 0.3 L, [place] # (Auto) 0.2, Eos # (Auto) 0.0, Baso # (Auto) 0.0, Sodium 136, Potassium 3.6, Chloride 108 H, Carbon Dioxide 21 L, Anion Gap 10.6, BUN 14 D, Creatinine 1.00 D, Estimated Creat Clear 60, Estimated GFR 75, Est GFR ( Amer) 90 D, Glucose 116 H, Calcium 8.5, Total Bilirubin 0.7, AST 44 D, ALT 45, Alkaline Phosphatase 137 H, Total Protein 6.2 L, Albumin 3.3 L D, Globulin 2.9, Albumin/Globulin Ratio 1.1, Procalcitonin 2.01 H I & O for Last 24 hours: Intake & Output 09/15/23 09/16/23 09/17/23 09/18/23 23:59 23:59 23:59 23:59 Intake Total 1850 / 1850 2946 / 2946 Output Total 1825 / 1825 0 / 0 Balance 2946 / 2946 Weight 105.778 kg 105.778 kg 109.004 kg Constitutional Constitutional: no acute distress *Routine HEENT Exam Head: Present normocephalic Eye: Present EOMI ENT: Present mucous membranes moist *Routine Neck Exam Neck: Present supple and full ROM *Routine Respiratory Exam Respiratory: Present accessory muscle use and CTA bilaterally *Routine Cardiovascular Exam Cardiovascular: Present RRR, Normal S1 and Normal S2 *Routine Abdominal Exam Abdominal: Present soft and normoactive bowel sounds *Routine Extremities Exam Extremities: Present full ROM and normal capillary refill *Routine Skin Exam Skin: Present intact and warm Results Data Completed and Pending Labs on day of discharge: Labs from last 24 hours 09/18/23 05:30 WBC 2.4 L RBC 3.80 L Hgb 11.3 L Hct 34.3 L MCV 90.2 MCH 29.7 MCHC 32.9 RDW 14.6 Plt Count 120 L MPV 8.9 Neut % (Auto) 80.1 H Lymph % (Auto) 12.0 [place] % (Auto) 6.1 Eos % (Auto) 1.4 Baso % (Auto) 0.4 Neut # (Auto) 1.9 Lymph # (Auto) 0.3 L [place] # (Auto) 0.2 Eos # (Auto) 0.0 Baso # (Auto) 0.0 Sodium 136 Potassium 3.6 Chloride 108 H Carbon Dioxide 21 L Anion Gap 10.6 BUN 14 D Creatinine 1.00 D Estimated Creat Clear 60 Estimated GFR 75 Est GFR ( Amer) 90 D Glucose 116 H Calcium 8.5 Total Bilirubin 0.7 AST 44 D ALT 45 Alkaline Phosphatase 137 H Total Protein 6.2 L Albumin 3.3 L D Globulin 2.9 Albumin/Globulin Ratio 1.1 Procalcitonin 2.01 H Imaging and Cardiology TESTING: Additional comments: - 09/17/23 echocardiogram: Within normal limits per cardiology --- PROCEDURE INFORMATION: Exam: CTA Chest With Contrast Exam date and time: 09/16/2023 6:24 PM Age: 68 years old Clinical indication: Pain; Shortness of breath; Chest pressure; Additional info: taryn Lord SOA TECHNIQUE: Imaging protocol: Computed tomographic angiography of the chest with contrast. Exam focused on the arteries. 3D rendering (Not supervised by radiologist): MIP and/or 3D reconstructed images were created by the technologist. Radiation optimization: All CT scans at this facility use at least one of these dose optimization techniques: automated exposure control; mA and/or kV adjustment per patient size (includes targeted exams where dose is matched to clinical indication); or iterative reconstruction. Contrast material: ISO 370; Contrast volume: 100 ml; Contrast route: INTRAVENOUS (IV); COMPARISON: CR XR CHEST PORTABLE 09/16/2023 5:39 PM FINDINGS: Pulmonary arteries: No pulmonary emboli. Aorta: No aortic aneurysm. No aortic dissection. Lungs: A triangular 5 mm fissure based nodule in the right middle lobe (image 48, series 9; image 37, series 1002). No other nodules or airspace consolidation. Pleural spaces: No pneumothorax. No pleural effusion. Heart: No cardiomegaly. No pericardial effusion. Coronary arteries: Small number of coronary artery calcifications. Lymph nodes: No enlarged lymph nodes. Liver: Liver has diffuse low density. Spleen: Spleen measures at least 15.5 cm and AP dimension. Bones/joints: No acute fracture. Soft tissues: No soft tissue masses. IMPRESSION: 1. No pulmonary emboli. No aortic aneurysm or intimal dissection. 2. No acute findings in the chest. 3. Benign, 5 mm, horizontal fissure based nodule in the right middle lobe along the horizontal fissure. No further imaging is necessary. 4. Mild coronary artery disease. 5. Hepatic steatosis. 6. Mild splenomegaly. Ordering Physician: Saravanan Cade MD Date of Service: 09/16/23 Procedure(s): XR chest portable Accession Number(s): [id number] cc: Provider,Abbe SHELBY; Marlo Parikh MD~ PROCEDURE INFORMATION: Exam: XR Chest Exam date and time: 09/16/2023 5:39 PM Age: 68 years old Clinical indication: Pain; Chest pressure; Additional info: Cp TECHNIQUE: Imaging protocol: Radiologic exam of the chest. Views: 1 view. COMPARISON: CR CXR2V XR chest 2V 05/09/2017 1:53 PM FINDINGS: Lungs: No consolidation or lung nodules. Pleural spaces: No pleural effusion. No pneumothorax. Heart/Mediastinum: No abnormalities. No cardiomegaly. No pulmonary vascular congestion. Bones/joints: No fractures or bone lesions. IMPRESSION: No acute findings in the chest. No interval change. DS: Diagnosis Discharge Diagnosis (1) Brugada syndrome: Status: Acute Code(s): I49.8 - Other specified cardiac arrhythmias (2) Fever: Status: Acute Code(s): R50.9 - Fever, unspecified (3) TATYANA (acute kidney injury): Status: Acute Code(s): N17.9 - Acute kidney failure, unspecified Meds Home Medications and Allergies Home Medications Medication Instructions Recorded Confirmed Type aspirin 81 mg chewable tablet 81 mg PO DAILY #90 tabs 09/18/23 Rx atorvastatin 40 mg tablet 40 mg PO HS #90 tabs 09/18/23 Rx metoprolol succinate 25 mg 25 mg PO DAILY #90 tabs 09/18/23 Rx tablet,extended release 24 hr New Prescriptions to Start Prescriptions: aspirin Kemp,[place] atorvastatin Kemp,[place] metoprolol succinate Kemp,[place] Allergies Allergy/AdvReac Type Severity Reaction Status Date / Time Penicillins Allergy Verified 11/18/21 09:05 Discharge Plan Disposition Patient Disposition: Home, Self-Care Condition: Good Follow up Plan Follow up with: Alejandro Pitts MD [Staff Physician] - 09/27/23 10:45 am ProviderAbbe MD [Primary Care Provider] - 1 week Prescriptions/Medication Reconciliation: New aspirin 81 mg Tablet,Chewable 81 mg PO DAILY Qty: 90 0RF atorvastatin 40 mg Tablet 40 mg PO HS Qty: 90 0RF metoprolol succinate 25 mg Tablet Extended Release 24 Hr 25 mg PO DAILY Qty: 90 0RF Problem Reconciliation Problems Reviewed?: Yes Patient Discharge Instructions ACTIVITY: Continue current activity DIET: continue same diet Additional Instructions: Patient needs 30-day event monitor at time of hospital discharge. Patient Instructions: Keep on Movin': Exercise After 50, Cardiac Cathet erization, Fever of Unknown Origin, Heart-Healthy Diet, DI for Chest Pain, Surgical Site Infection, Eat Well, Exercise Well, Be Well: Dietary and Fitness Guidelines, Moderate Sedation, DI for Post-Surgical Bleeding Print Language: Croatian Providers Primary Care Provider: Provider,Referral Admit Provider: Mark Ewing Attending Provider: Mark Ewing
--- NOTE | 2023-09-19 13:44 | CARE MANAGER ---
Contacted patient related to hospital discharge. He states he got his medication before leaving the hospital. He is aware of follow up appointment with cardiology. He denies any other questions or concerns. LENNY Tan
== END 2023-09-18 17:19 | disposition home or self-care (01) ==
LOC: ER 18:56 → 2ND 20:03
PROVIDERS: Internal Medicine; Nurse Practitioner Acute Care; Admitting Provider Family Medicine; Emergency Provider Emergency Medicine; Visit Provider Family Medicine
DX: I49.8 Other specified cardiac arrhythmias (principal); J98.8 Other specified respiratory disorders; I25.10 Atherosclerotic heart disease of native coronary artery without angina pectoris; N17.9 Acute kidney failure, unspecified; R50.9 Fever, unspecified
CPT/HCPCS: 36415; 71045; 71275; 80048; 80053; 80061; 83036; 83735; 84145; 84484; 85007; 85025; 85610; 85730; 87636; 93005; 93270; 93272; 93306; 93458; 99152; 99221; 99291; C1725; C1769; G0378; J1644; J2250; J2270; J3010; J7120; Q9967